=== PATIENT | female | born 1995 | race Two or more races ===

== ENCOUNTER 2023-10-18 14:31 | Emergency (ER) | payer MEDICAID, OTHER ==
[~2023-10-18] VITALS: Ht 165.1 cm; Wt 67.0 kg
[2023-10-18] MEDS ORDERED: IBUP-1456 PO (19:43)
[2023-10-18] MEDS ORDERED: CYCL-837 PO (19:43)
[2023-10-18 21:32] VITALS: BP 113/65; PULSE 81; RESP 20; TEMP 99; O2SAT 98
== END 2023-10-18 21:32 | disposition home or self-care (01) ==
LOC: ER 14:31
DX: S16.1XXA Strain of muscle, fascia and tendon at neck level, initial encounter (principal); R51.9 Headache, unspecified; M25.512 Pain in left shoulder; F41.9 Anxiety disorder, unspecified; F32.9 Major depressive disorder, single episode, unspecified; Z79.899 Other long term (current) drug therapy; V43.51XA Car driver injured in collision with sport utility vehicle in traffic accident, initial encounter; Y93.I9 Activity, other involving external motion; Y92.89 Other specified places as the place of occurrence of the external cause; Y99.8 Other external cause status
CPT/HCPCS: 72040